=== PATIENT | male | born 1980 | race Caucasian/White ===

== ENCOUNTER 2018-03-25 20:43 | Emergency (ER) | payer OTHER ==
[~2018-03-25] VITALS: Ht 180.3 cm; Wt 77.1 kg
[~2018-03-25 20:43] MED LIST: NOHOMEMEDICATIONS
[2018-03-25] MEDS ORDERED: KEFLEX500 M1 PO (21:13)
[2018-03-25 21:44] VITALS: BP 140/70
== END 2018-03-25 21:45 | disposition home or self-care (01) ==
LOC: M.ERS 20:43
DX: S51.812A Laceration without foreign body of left forearm, initial encounter (principal); X58.XXXA Exposure to other specified factors, initial encounter; Y93.89 Activity, other specified; Y92.89 Other specified places as the place of occurrence of the external cause; Y99.8 Other external cause status